=== PATIENT | male | born 1985 | race Caucasian/White ===

== ENCOUNTER → 2019-12-14 14:32 | Outpatient (CLI) | payer SELFPAY ==
[2019-12-14 09:36] VITALS: BMI 28.5
== END ==
PROVIDERS: Family Provider Family Medicine; PCP Family Medicine; Referring Provider Physician Assistant Surgical; Visit Provider Physician Assistant Surgical
DX: J02.9 Acute pharyngitis, unspecified (principal)
CPT/HCPCS: 87070